=== PATIENT | male | born 1990 | race Caucasian/White ===

== ENCOUNTER 2017-10-21 17:02 | Emergency (ER) | payer OTHER ==
[2017-10-21 17:16] VITALS: RESP 18
--- NOTE | 2017-10-21 18:27 | ED ---
General Adult HPI - General Chief complaint: Allergic Reaction Stated complaint: poss med reaction Time Seen by Provider: 10/21/17 18:13 Source: patient Mode of arrival: ambulatory Limitations: no limitations - History of Present Illness Initial comments: 27-year-old male patient presents to emergency department today for evaluation of feeling "off". 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 States he started feeling woozy and unwell. Patient states that he did start taking amoxicillin this morning for dental infection. He is unsure if his symptoms are related to the medication. He denies any headache, dizziness, shortness of breath, throat swelling, tongue swelling, rash, or lip swelling. States he has never taken amoxicillin before. He denies any nausea or vomiting with this. Patient denies any recent rash, fever, chills, chest pain , abdominal pain, diarrhea, constipation, back pain, numbness, tingling, hematuria, dysuria, urinary urgency, urinary frequency, headache, visual changes, or any other complaints. - Related Data Home Medications Medication Instructions Recorded Confirmed Amoxicillin 500 mg PO Q8H 10/21/17 10/21/17 Allergies Allergy/AdvReac Type Severity Reaction Status Date / Time amoxicillin AdvReac Confusion Verified 10/21/17 17:16 Review of Systems ROS Statement: Those systems with pertinent positive or pertinent negative responses have been documented in the HPI. ROS Other: All systems not noted in ROS Statement are negative. Past Medical History Additional Past Medical History / Comment(s): Hypoglycemia History of Any Multi-Drug Resistant Organisms: None Reported Past Surgical History: No Surgical Hx Reported Past Psychological History: Depression Smoking Status: Current some day smoker Past Alcohol Use History: None Reported Past Drug Use History: None Reported General Exam Limitations: no limitations General appearance: alert, in no apparent distress, other (Social well-developed , well-nourished adult male patient in no acute distress. Vital signs upon presentation are temperature 90.3F, pulse 85, respirations 18, blood pressure 151/89, pulse ox 98% on room air.) Eye exam: Present: normal appearance, PERRL, EOMI. Absent: scleral icterus, conjunctival injection, periorbital swelling ENT exam: Present: normal exam, normal oropharynx, mucous membranes moist, other (Patient has multiple dental caries, left upper dentition reveals surrounding gingival erythema and some minor gingival swelling. No evidence of drainable abscess.) Respiratory exam: Present: normal lung sounds bilaterally. Absent: respiratory distress, wheezes, rales, rhonchi, stridor Cardiovascular Exam: Present: regular rate, normal rhythm, normal heart sounds. Absent: systolic murmur, diastolic murmur, rubs, gallop, clicks GI/Abdominal exam: Present: soft, normal bowel sounds. Absent: distended, tenderness, guarding, rebound, rigid Neurological exam: Present: alert, oriented X3, CN II-XII intact Psychiatric exam: Present: normal affect, normal mood Skin exam: Present: warm, dry, intact, normal color. Absent: rash Course Vital Signs 10/21/17 17:12 Temperature 98.3 F Pulse Rate 85 Respiratory 18 Rate Blood Pressure 151/89 O2 Sat by Pulse 98 Oximetry Medical Decision Making - Medical Decision Making 27-year-old male patient presented to the emergency department today for evaluation of feeling woozy and unwell. Physical examination is unremarkable. Examination of the mouth does reveal multiple dental caries and poor dentition. Patient's vital signs are stable. He is feeling somewhat better now that he is in the cool air and has rested afterward. He is urged to continue taking the amoxicillin as a do not feel that this is controlled with into his symptoms. He is instructed to follow-up with dentistry as soon as possible. Return parameters discussed in detail. He verbalizes understanding and agrees with this plan. Disposition Clinical Impression: Dental infection Disposition: HOME SELF-CARE Condition: Good Instructions: Toothache (ED) Additional Instructions: Rest, increase fluids, follow-up with dentistry as you have planned. Continue antibiotics. Return here immediately for any new, worsening, or concerning symptoms. Is patient prescribed a controlled substance at d/c from ED?: No Referrals: None,Stated [Primary Care Provider] - 1-2 days Time of Disposition: 18:27
[2017-10-21 18:53] VITALS: BP 133/79; PULSE 65; TEMP 98.8
== END 2017-10-21 18:53 | disposition home or self-care (01) ==
LOC: EC 17:02
DX: K04.7 Periapical abscess without sinus (principal); F17.200 Nicotine dependence, unspecified, uncomplicated; Z88.0 Allergy status to penicillin
CPT/HCPCS: 99283

== ENCOUNTER 2019-01-20 11:10 | Inpatient (IN) | payer OTHER ==
[2019-01-20] MEDS ORDERED: SODIUM CHLORIDE 0.9% 1,000 ML IV ONE ×2 (12:04→12:05)
[2019-01-20] MEDS ORDERED: ONDANSETRON 4 MG/2 ML VIAL IVP STA (12:05)
[2019-01-20 12:06] LABS: Glucose,Whole Blood 346 mg/dL (75-99)
[2019-01-20] MEDS ORDERED: Potassium Replacement Protocol 1 EACH MISC MISCELLANE PRN ×2 (12:06→20:49)
[2019-01-20] MEDS ORDERED: Magnesium Replacement Protocol 1 EACH MISC MISCELLANE PRN (12:06)
[2019-01-20] MEDS ORDERED: INSULIN REGULAR 100 UNIT in SODIUM CHLORIDE 0.9% 100 ML IV SCH (12:15)
--- NOTE | 2019-01-20 12:24 | ED ---
General Adult HPI - General Chief complaint: Urogenital Stated complaint: Abd Pain Time Seen by Provider: 01/20/19 11:15 Source: patient, RN notes reviewed Mode of arrival: ambulatory Limitations: no limitations - History of Present Illness Initial comments: This is a 28-year-old male who presents emergency Department complaining that for a month he has not been feeling well. Patient states she's been urinating quite often and drinking quite a bit of fluid. Patient states his mouth was also very dry. Patient states this morning he got up in the started vomiting and continued not to feel well so decided come the emergency department. Patient denies any fever chills per patient denies any chest pain or palpitations. Patient denies any lightheadedness or dizziness. Patient denies any abdominal pain patient denies any diarrhea. Patient denies any recent injury or fall. - Related Data Home Medications Medication Instructions Recorded Confirmed No Known Home Medications 01/20/19 01/20/19 Allergies Allergy/AdvReac Type Severity Reaction Status Date / Time No Known Allergies Allergy Verified 01/20/19 12:04 Review of Systems ROS Statement: Those systems with pertinent positive or pertinent negative responses have been documented in the HPI. ROS Other: All systems not noted in ROS Statement are negative. Past Medical History Additional Past Medical History / Comment(s): Hypoglycemia History of Any Multi-Drug Resistant Organisms: None Reported Past Surgical History: No Surgical Hx Reported Past Psychological History: No Psychological Hx Reported Smoking Status: Former smoker Past Alcohol Use History: None Reported Past Drug Use History: None Reported General Exam - General Exam Comments Initial Comments: GENERAL: Patient is well-developed and well-nourished. Patient is nontoxic and well- hydrated and is in mild distress. ENT: Neck is soft and supple. No significant lymphadenopathy is noted. Oropharynx is clear. Moist mucous membranes. Neck has full range of motion without eliciting any pain. EYES: The sclera were anicteric and conjunctiva were pink and moist. Extraocular movements were intact and pupils were equal round and reactive to light. Eyelids were unremarkable. PULMONARY: Unlabored respirations. Good breath sounds bilaterally. No audible rales rhonchi or wheezing was noted. CARDIOVASCULAR: There is a regular rate and rhythm without any murmurs gallops or rubs. ABDOMEN: Soft and nontender with normal bowel sounds. No palpable organomegaly was noted. There is no palpable pulsatile mass. SKIN: Skin is clear with no lesions or rashes and otherwise unremarkable. NEUROLOGIC: Patient is alert and oriented x3. Cranial nerves II through XII are grossly intact. Motor and sensory are also intact. Normal speech, volume and content. Symmetrical smile. MUSCULOSKELETAL: Normal extremities with adequate strength and full range of motion. No lower extremity swelling or edema. No calf tenderness. LYMPHATICS: No significant lymphadenopathy is noted PSYCHIATRIC: Normal psychiatric evaluation. Limitations: no limitations Course Vital Signs 01/20/19 11:15 Temperature 97.9 F Pulse Rate 106 H Respiratory 18 Rate Blood Pressure 157/74 O2 Sat by Pulse 100 Oximetry Medical Decision Making - Medical Decision Making EKG shows normal sinus rhythm at [address] interval is on a 56 QRS is 88 QT interval 372 QTC is 447. EKG shows no ST segment elevation or depression or T wave abnormalities are noted. Patient appears to be a new onset diabetic. I started the patient on insulin drip after a bolus and I gave the patient 2 L of fluid. I spoke with Dr. tucker he agreed to admit the patient admitted the patient wrote admitting orders. - Lab Data Result diagrams: 01/20/19 12:11 Lab Results 01/20/19 01/20/19 01/20/19 Range/Units 12:04 12:11 12:11 WBC 11.1 H (3.8-10.6) k/uL RBC 5.28 (4.30-5.90) m/uL Hgb 16.2 (13.0-17.5) gm/dL Hct 46.4 (39.0-53.0) % MCV 87.9 (80.0-100.0) fL MCH 30.7 (25.0-35.0) pg MCHC 35.0 (31.0-37.0) g/dL RDW 13.1 (11.5-15.5) % Plt Count 260 (150-450) k/uL Neutrophils % 86 % Lymphocytes % 8 % Monocytes % 4 % Eosinophils % 1 % Basophils % 0 % Neutrophils # 9.5 H (1.3-7.7) k/uL Lymphocytes # 0.9 L (1.0-4.8) k/uL Monocytes # 0.4 (0-1.0) k/uL Eosinophils # 0.1 (0-0.7) k/uL Basophils # 0.0 (0-0.2) k/uL POC Glucose (mg/dL) 346 H (75-99) mg/dL POC Glu Metal Mold Dresser ID Liz Alfaro Urine Color Urine Appearance (Clear) Urine pH (5.0-8.0) Ur Specific Lamar (1.001-1.035) Urine Protein (Negative) Urine Glucose (UA) (Negative) Urine Ketones (Negative) Urine Blood (Negative) Urine Nitrite (Negative) Urine Bilirubin (Negative) Urine Urobilinogen (<2.0) mg/dL Ur Leukocyte Esterase (Negative) Urine RBC (0-5) /hpf Urine WBC (0-5) /hpf Ur Squamous Epith Cells (0-4) /hpf Urine Bacteria (None) /hpf Urine Mucus (None) /hpf Acetone, Qual Positive (Negative) 01/20/19 Range/Units 12:11 WBC (3.8-10.6) k/uL RBC (4.30-5.90) m/uL Hgb (13.0-17.5) gm/dL Hct (39.0-53.0) % MCV (80.0-100.0) fL MCH (25.0-35.0) pg MCHC (31.0-37.0) g/dL RDW (11.5-15.5) % Plt Count (150-450) k/uL Neutrophils % % Lymphocytes % % Monocytes % % Eosinophils % % Basophils % % Neutrophils # (1.3-7.7) k/uL Lymphocytes # (1.0-4.8) k/uL Monocytes # (0-1.0) k/uL Eosinophils # (0-0.7) k/uL Basophils # (0-0.2) k/uL POC Glucose (mg/dL) (75-99) mg/dL POC Glu Metal [employer] Dresser ID Urine Color Light Yellow Urine Appearance Clear (Clear) Urine pH 5.5 (5.0-8.0) Ur Specific Lamar 1.027 (1.001-1.035) Urine Protein 1+ H (Negative) Urine Glucose (UA) 4+ H (Negative) Urine Ketones 4+ H (Negative) Urine Blood Small H (Negative) Urine Nitrite Negative (Negative) Urine Bilirubin Negative (Negative) Urine Urobilinogen <2.0 (<2.0) mg/dL Ur Leukocyte Esterase Negative (Negative) Urine RBC 1 (0-5) /hpf Urine WBC 1 (0-5) /hpf Ur Squamous Epith Cells <1 (0-4) /hpf Urine Bacteria Rare H (None) /hpf Urine Mucus Rare H (None) /hpf Acetone, Qual (Negative) Critical Care Time Critical Care Time: Yes Total Critical Care Time: 35 Disposition Clinical Impression: Diabetes mellitus, new onset, DKA (diabetic ketoacidoses) Disposition: ADMITTED IP TO THIS HOSP Referrals: None,Stated [Primary Care Provider] - 1-2 days Time of Disposition: 13:03
[2019-01-20] MEDS: SODIUM CHLORIDE 0.9% 1,000 ML IV SCH ×2 (12:27→14:33)
[2019-01-20 12:30] LABS: Basophils % (A) 0 %; Eosinophils # (A) 0.1 k/uL (0-0.7); Eosinophils % (A) 1 %; HCT 46.4 % (39.0-53.0); HGB 16.2 gm/dL (13.0-17.5); Lymphocytes # (A) 0.9 k/uL (1.0-4.8); Lymphocytes % (A) 8 %; MCH 30.7 pg (25.0-35.0); MCV 87.9 fL (80.0-100.0); Mean Platelet Volume 8.6; Monocytes # (A) 0.4 k/uL (0-1.0); Monocytes % (A) 4 %; Neutrophils # (A) 9.5 k/uL (1.3-7.7); Neutrophils % (A) 86 %; Platelet Count 260 k/uL (150-450); RBC 5.28 m/uL (4.30-5.90); RDW 13.1 % (11.5-15.5); WBC 11.1 k/uL (3.8-10.6)
[2019-01-20 12:36] LABS: Appearance,Urine Clear (Clear); Bacteria,Urine Rare /hpf; Bilirubin,Urine Negative (Negative); Blood,Urine Small (Negative); Color,Urine Light Yellow; Glucose,Urine (UA) 4+ (Negative); Leukocyte Esterase,Urine Negative (Negative); Mucus,Urine Rare /hpf; Nitrite,Urine Negative (Negative); PH, Urine 5.5 (5.0-8.0); Protein,Urine 1+ (Negative); RBC,Urine 1 /hpf (0-5); Specific Gravity,Urine 1.027 (1.001-1.035); Squamous Epithelial Cell,Urine <1 /hpf (0-4); Urobilinogen,Urine <2.0 mg/dL (<2.0)
[2019-01-20 12:46] LABS: Ketones,Urine 4+ (Negative)
[2019-01-20] MEDS: INSULIN REGULAR BOLUS (FROM DRIP BAG) IV ONE ×2 (12:51→23:24)
[2019-01-20 13:01] LABS: ALT 24 U/L (21-72); AST 19 U/L (17-59); African American GFR (CKD) >90 (>60 ml/min/1.73 sqM); Albumin 5.2 g/dL (3.5-5.0); Alkaline Phosphatase 69 U/L (38-126); Anion Gap 25 mmol/L; Blood Urea Nitrogen 11 mg/dL (9-20); Calcium 9.9 mg/dL (8.4-10.2); Chloride 103 mmol/L (98-107); Glucose 355 mg/dL (74-99); Potassium 4.5 mmol/L (3.5-5.1); Sodium 135 mmol/L (137-145); Total Bilirubin 0.9 mg/dL (0.2-1.3)
[2019-01-20] MEDS ORDERED: ONDANSETRON 4 MG/2 ML VIAL IVP PRN (13:04)
[2019-01-20 13:13] LABS: Carbon Dioxide 7 mmol/L (22-30)
[2019-01-20] MEDS: INSULIN REGULAR 100 UNIT in SODIUM CHLORIDE 0.9% 100 ML IV SCH (13:15)
[2019-01-20] MEDS ORDERED: SODIUM CHLORIDE 0.9% 1,000 ML IV SCH (13:15)
[2019-01-20 13:42] LABS: Glucose,Whole Blood 229 mg/dL (75-99)
[2019-01-20 14:34] LABS: VBG PH 7.02 (7.31-7.41)
[2019-01-20 14:36] LABS: Glucose,Whole Blood 219 mg/dL (75-99)
[2019-01-20 15:41] LABS: Glucose,Whole Blood 176 mg/dL (75-99)
[2019-01-20] MEDS: D5-0.45% NACL WITH KCL 20MEQ/L 1,000 ML IV SCH ×3 (15:41→23:22)
[2019-01-20 16:18] LABS: African American GFR (CKD) >90 (>60 ml/min/1.73 sqM); Anion Gap 17 mmol/L; Blood Urea Nitrogen 10 mg/dL (9-20); Chloride 111 mmol/L (98-107); Glucose 174 mg/dL (74-99); Potassium 3.5 mmol/L (3.5-5.1); Sodium 136 mmol/L (137-145)
[2019-01-20 16:30] LABS: Carbon Dioxide 8 mmol/L (22-30)
[2019-01-20 16:50] LABS: Glucose,Whole Blood 200 mg/dL (75-99)
[2019-01-20 18:16] LABS: Glucose,Whole Blood 189 mg/dL (75-99)
[2019-01-20 18:47] LABS: Glucose,Whole Blood 298 mg/dL (75-99)
[2019-01-20 20:21] LABS: Glucose,Whole Blood 224 mg/dL (75-99)
[2019-01-20 20:34] LABS: African American GFR (CKD) >90 (>60 ml/min/1.73 sqM); Anion Gap 13 mmol/L; Blood Urea Nitrogen 10 mg/dL (9-20); Carbon Dioxide 13 mmol/L (22-30); Chloride 109 mmol/L (98-107); Glucose 212 mg/dL (74-99); Sodium 135 mmol/L (137-145)
[2019-01-20 21:01] LABS: Glucose,Whole Blood 202 mg/dL (75-99)
[2019-01-20 22:06] LABS: Glucose,Whole Blood 238 mg/dL (75-99)
[2019-01-20] MEDS: POTASSIUM CHLORIDE ER 20 MEQ TAB.ER PO SCH ×2 (22:12→23:27)
[2019-01-20] MEDS ORDERED: Phosphorus Replacement Protoco 1 EACH MISC MISCELLANE PRN ×2 (22:23→22:40)
[2019-01-20] MEDS ORDERED: POTASSIUM PHOSPHATE 10 MMOL in SODIUM CHLORIDE 0.9% 250 ML IV SCH (23:00)
[2019-01-20 23:24] LABS: Glucose,Whole Blood 133 mg/dL (75-99)
[2019-01-20] MEDS: SODIUM PHOSPHATE 10 MMOL in SODIUM CHLORIDE 0.9% 250 ML IVPB SCH (23:28)
[2019-01-21] MEDS: INSULIN REGULAR 100 UNIT in SODIUM CHLORIDE 0.9% 100 ML IV SCH ×2 (00:22→09:32)
[2019-01-21 00:38] LABS: ALT 23 U/L (21-72); AST 14 U/L (17-59); African American GFR (CKD) >90 (>60 ml/min/1.73 sqM); Albumin 3.3 g/dL (3.5-5.0); Alkaline Phosphatase 38 U/L (38-126); Anion Gap 8 mmol/L; Blood Urea Nitrogen 9 mg/dL (9-20); Calcium 8.5 mg/dL (8.4-10.2); Carbon Dioxide 16 mmol/L (22-30); Chloride 110 mmol/L (98-107); Glucose 99 mg/dL (74-99); Magnesium 2.1 mg/dL (1.6-2.3); Sodium 134 mmol/L (137-145); Total Bilirubin 0.7 mg/dL (0.2-1.3); Total Protein 5.7 g/dL (6.3-8.2)
[2019-01-21] MEDS: POTASSIUM CHLORIDE ER 20 MEQ TAB.ER PO SCH ×4 (01:10→06:31)
--- NOTE | 2019-01-21 01:23 | P.HPIM ---
History of Present Illness H&P Date: 01/20/19 Chief Complaint: Generalized weakness and not feeling well Patient is a 28-year-old male with significant family history of diabetes type 1 and 2, currently not on any medications came to ER with complaints of not feeling well for about a month. Patient has been having frequent urination and drinking plenty of water and still feeling thirsty. Denied any dysuria or hematuria. Patient states this morning he got up in the started vomiting and continued not to feel well so decided come the emergency department. Patient denied any complaints of abdominal pain. No diarrhea. No fever no chills. No chest pain or shortness of breath. Denied any recent illnesses or upper respiratory infection or pneumonia. No cough or sputum production. Anion gap 25 and bicarb level 7 on admission. Blood sugar 355 and urinalysis showed no evidence of infection. Acetone positive. Review of Systems Constitutional: Patient denied any fever or chills. . Patient does have generalized weakness and malaise. Abdomen: Nausea and episodes of vomiting. No abdominal pain no diarrhea. Cardiovascular: Patient denies any chest pain or short of breath no palpitations. Respiratory: patient denied any cough is from production. No shortness of breath Neurologic: Patient denied any numbness or tingling headache. Musculoskeletal: Patient denies any complaints of joint swelling or deformity. Skin: Negative Psychiatric: Negative Endocrine: No heat or cold intolerance. Polyuria and polydipsia. Genitourinary: No dysuria or hematuria. All other 14 point ROS negative except the above Past Medical History Past Medical History: No Reported History Additional Past Medical History / Comment(s): Hypoglycemia History of Any Multi-Drug Resistant Organisms: None Reported Past Surgical History: No Surgical Hx Reported Past Psychological History: No Psychological Hx Reported Smoking Status: Former smoker Past Alcohol Use History: None Reported Past Drug Use History: None Reported - Past Family History Father Family Medical History: Cancer, Coronary Artery Disease (CAD), Myocardial Infarction ([place]) Mother Family Medical History: Diabetes Mellitus Medications and Allergies Home Medications Medication Instructions Recorded Confirmed Type No Known Home Medications 01/20/19 01/20/19 History Allergies Allergy/AdvReac Type Severity Reaction Status Date / Time No Known Allergies Allergy Verified 01/20/19 12:04 Physical Exam Vitals: Vital Signs Temp Pulse Resp BP Pulse Ox 01/20/19 18:20 90 10 L 120/76 100 01/20/19 18:10 68 19 120/76 99 01/20/19 18:00 67 18 114/74 01/20/19 17:50 71 16 114/74 01/20/19 17:40 79 9 L 114/74 01/20/19 17:30 18 114/74 01/20/19 17:20 73 19 114/74 99 01/20/19 17:10 80 29 H 114/74 01/20/19 17:00 66 20 117/71 01/20/19 16:50 85 15 117/71 01/20/19 16:40 87 12 117/71 01/20/19 16:30 75 18 117/71 99 01/20/19 16:20 72 16 117/71 01/20/19 16:10 77 10 L 117/71 01/20/19 16:00 86 18 125/73 01/20/19 15:50 86 23 125/73 01/20/19 15:40 74 20 125/73 01/20/19 15:31 92 21 125/73 01/20/19 15:20 72 17 125/73 01/20/19 15:10 79 22 125/73 01/20/19 15:01 83 16 124/75 01/20/19 14:50 80 17 124/75 01/20/19 14:41 88 16 01/20/19 11:15 97.9 F 106 H 18 157/74 100 Intake and Output 01/20/19 01/20/19 01/20/19 06:59 14:59 22:59 Other: Weight 91.626 kg PHYSICAL EXAMINATION: Patient is lying in the bed comfortably, no acute distress, awake alert and oriented. Lethargic and sleepy. HEENT: Normocephalic. Neck is supple. Pupils reactive. Nostrils clear. Oral cavity is moist. Ears reveal no drainage. Neck reveals no JVD, carotid bruits, or thyromegaly. CHEST EXAMINATION: Trachea is central. Symmetrical expansion. Lung wu clear to auscultation and percussion. CARDIAC: Normal S1, S2 with no gallops. No murmurs ABDOMEN: Soft. Bowel sounds normal. No organomegaly. No abdominal bruits. Extremities: reveal no edema. No clubbing or cyanosis Neurologically awake, alert, oriented x3 with well-coordinated movements. No focal deficits noted Skin: No rash or skin lesions. Psychiatric: Coperative. Nonsuicidal Musculoskeletal: No joint swelling or deformity. Normal range of motion. Results CBC & Chem 7: 01/20/19 12:11 01/21/19 00:12 Labs: Abnormal Lab Results - Last 24 Hours (Table) 01/20/19 01/20/19 01/20/19 Range/Units 12:04 12:11 12:11 WBC 11.1 H (3.8-10.6) k/uL Neutrophils # 9.5 H (1.3-7.7) k/uL Lymphocytes # 0.9 L (1.0-4.8) k/uL VBG pH (7.31-7.41) VBG pCO2 (37-51) mmHg VBG HCO3 (24-28) mmol/L Sodium 135 L (137-145) mmol/L Potassium (3.5-5.1) mmol/L Chloride (98-107) mmol/L Carbon Dioxide 7 L* (22-30) mmol/L Glucose 355 H (74-99) mg/dL POC Glucose (mg/dL) 346 H (75-99) mg/dL Phosphorus (2.5-4.5) mg/dL Albumin 5.2 H (3.5-5.0) g/dL Urine Protein (Negative) Urine Glucose (UA) (Negative) Urine Ketones (Negative) Urine Blood (Negative) Urine Bacteria (None) /hpf Urine Mucus (None) /hpf 01/20/19 01/20/19 01/20/19 Range/Units 12:11 13:40 13:41 WBC (3.8-10.6) k/uL Neutrophils # (1.3-7.7) k/uL Lymphocytes # (1.0-4.8) k/uL VBG pH 7.02 L* (7.31-7.41) VBG pCO2 35 L (37-51) mmHg VBG HCO3 9 L* (24-28) mmol/L Sodium (137-145) mmol/L Potassium (3.5-5.1) mmol/L Chloride (98-107) mmol/L Carbon Dioxide (22-30) mmol/L Glucose (74-99) mg/dL POC Glucose (mg/dL) 229 H (75-99) mg/dL Phosphorus (2.5-4.5) mg/dL Albumin (3.5-5.0) g/dL Urine Protein 1+ H (Negative) Urine Glucose (UA) 4+ H (Negative) Urine Ketones 4+ H (Negative) Urine Blood Small H (Negative) Urine Bacteria Rare H (None) /hpf Urine Mucus Rare H (None) /hpf 01/20/19 01/20/19 01/20/19 Range/Units 14:34 15:40 15:48 WBC (3.8-10.6) k/uL Neutrophils # (1.3-7.7) k/uL Lymphocytes # (1.0-4.8) k/uL VBG pH (7.31-7.41) VBG pCO2 (37-51) mmHg VBG HCO3 (24-28) mmol/L Sodium (137-145) mmol/L Potassium (3.5-5.1) mmol/L Chloride (98-107) mmol/L Carbon Dioxide (22-30) mmol/L Glucose (74-99) mg/dL POC Glucose (mg/dL) 219 H 176 H (75-99) mg/dL Phosphorus 1.0 L* (2.5-4.5) mg/dL Albumin (3.5-5.0) g/dL Urine Protein (Negative) Urine Glucose (UA) (Negative) Urine Ketones (Negative) Urine Blood (Negative) Urine Bacteria (None) /hpf Urine Mucus (None) /hpf 01/20/19 01/20/19 01/20/19 Range/Units 15:48 16:49 18:14 WBC (3.8-10.6) k/uL Neutrophils # (1.3-7.7) k/uL Lymphocytes # (1.0-4.8) k/uL VBG pH (7.31-7.41) VBG pCO2 (37-51) mmHg VBG HCO3 (24-28) mmol/L Sodium 136 L (137-145) mmol/L Potassium (3.5-5.1) mmol/L Chloride 111 H (98-107) mmol/L Carbon Dioxide 8 L* (22-30) mmol/L Glucose 174 H (74-99) mg/dL POC Glucose (mg/dL) 200 H 189 H (75-99) mg/dL Phosphorus (2.5-4.5) mg/dL Albumin (3.5-5.0) g/dL Urine Protein (Negative) Urine Glucose (UA) (Negative) Urine Ketones (Negative) Urine Blood (Negative) Urine Bacteria (None) /hpf Urine Mucus (None) /hpf 01/20/19 01/20/19 01/20/19 Range/Units 18:45 20:08 20:11 WBC (3.8-10.6) k/uL Neutrophils # (1.3-7.7) k/uL Lymphocytes # (1.0-4.8) k/uL VBG pH (7.31-7.41) VBG pCO2 (37-51) mmHg VBG HCO3 (24-28) mmol/L Sodium (137-145) mmol/L Potassium (3.5-5.1) mmol/L Chloride (98-107) mmol/L Carbon Dioxide (22-30) mmol/L Glucose (74-99) mg/dL POC Glucose (mg/dL) 298 H 224 H (75-99) mg/dL Phosphorus 0.9 L* (2.5-4.5) mg/dL Albumin (3.5-5.0) g/dL Urine Protein (Negative) Urine Glucose (UA) (Negative) Urine Ketones (Negative) Urine Blood (Negative) Urine Bacteria (None) /hpf Urine Mucus (None) /hpf 01/20/19 01/20/19 Range/Units 20:11 20:59 WBC (3.8-10.6) k/uL Neutrophils # (1.3-7.7) k/uL Lymphocytes # (1.0-4.8) k/uL VBG pH (7.31-7.41) VBG pCO2 (37-51) mmHg VBG HCO3 (24-28) mmol/L Sodium 135 L (137-145) mmol/L Potassium 3.0 L (3.5-5.1) mmol/L Chloride 109 H (98-107) mmol/L Carbon Dioxide 13 L (22-30) mmol/L Glucose 212 H (74-99) mg/dL POC Glucose (mg/dL) 202 H (75-99) mg/dL Phosphorus (2.5-4.5) mg/dL Albumin (3.5-5.0) g/dL Urine Protein (Negative) Urine Glucose (UA) (Negative) Urine Ketones (Negative) Urine Blood (Negative) Urine Bacteria (None) /hpf Urine Mucus (None) /hpf Thrombosis Risk Factor Assmnt - DVT/VTE Prophylaxis DVT/VTE Prophylaxis: Pharmacologic Prophylaxis ordered - Choose All That Apply Any of the Below Risk Factors Present?: No Other Risk Factors: No Other congenital or acquired thrombophilia - If yes, enter type in comment: No Thrombosis Risk Factor Assessment Level: Very Low Risk Assessment and Plan Assessment: acute diabetic ketoacidosis anion gap metabolic acidosis New onset diabetes Hypophosphatemia Hyperglycemia DVT prophylaxis Patient will be continued on IV hydration and insulin drip until anion gap closes. Continue to monitor lites.. Symptomatic management for nausea. Will obtain his B A1c level. Replace electrolytes. Patient will be transferred to MICU for critical care management and close monitoring. Further recommendations based on the clinical course. Time with Patient: Greater than 30
[2019-01-21 02:47] LABS: Glucose,Whole Blood 114 mg/dL (75-99)
[2019-01-21 03:42] LABS: Glucose,Whole Blood 105 mg/dL (75-99)
[2019-01-21 03:59] LABS: Basophils % (A) 0 %; Eosinophils # (A) 0.2 k/uL (0-0.7); Eosinophils % (A) 3 %; HCT 35.6 % (39.0-53.0); Lymphocytes # (A) 1.4 k/uL (1.0-4.8); Lymphocytes % (A) 20 %; MCH 29.1 pg (25.0-35.0); MCV 85.6 fL (80.0-100.0); Mean Platelet Volume 8.9; Monocytes # (A) 0.5 k/uL (0-1.0); Monocytes % (A) 7 %; Neutrophils # (A) 4.6 k/uL (1.3-7.7); Neutrophils % (A) 68 %; Platelet Count 158 k/uL (150-450); RBC 4.16 m/uL (4.30-5.90); RDW 13.2 % (11.5-15.5); WBC 6.8 k/uL (3.8-10.6)
[2019-01-21] MEDS: SODIUM PHOSPHATE 10 MMOL in SODIUM CHLORIDE 0.9% 250 ML IVPB SCH ×5 (04:01→17:17)
[2019-01-21 04:02] LABS: HGB 12.1 gm/dL (13.0-17.5)
[2019-01-21 04:07] LABS: Glucose,Whole Blood 123 mg/dL (75-99)
[2019-01-21 04:12] LABS: African American GFR (CKD) >90 (>60 ml/min/1.73 sqM); Anion Gap 11 mmol/L; Blood Urea Nitrogen 8 mg/dL (9-20); Calcium 8.2 mg/dL (8.4-10.2); Carbon Dioxide 14 mmol/L (22-30); Chloride 110 mmol/L (98-107); Glucose 110 mg/dL (74-99); Potassium 3.2 mmol/L (3.5-5.1); Sodium 135 mmol/L (137-145)
[2019-01-21 05:06] LABS: Glucose,Whole Blood 120 mg/dL (75-99)
[2019-01-21 06:30] LABS: Glucose,Whole Blood 144 mg/dL (75-99)
[2019-01-21] MEDS: D5-0.45% NACL WITH KCL 20MEQ/L 1,000 ML IV SCH (06:33)
[2019-01-21 07:39] LABS: Glucose,Whole Blood 108 mg/dL (75-99)
[2019-01-21 08:05] LABS: Glucose,Whole Blood 118 mg/dL (75-99)
[2019-01-21 08:36] LABS: Potassium 3.6 mmol/L (3.5-5.1)
[2019-01-21] MEDS: HEPARIN SODIUM,PORCINE 5,000 UNIT/ML 1 ML VIAL SQ SCH ×3 (08:49→23:11)
[2019-01-21 09:24] LABS: Glucose,Whole Blood 133 mg/dL (75-99)
[2019-01-21] MEDS ORDERED: Potassium Replacement Protocol 1 EACH MISC MISCELLANE PRN (09:31)
[2019-01-21] MEDS ORDERED: POTASSIUM BICARBONATE/CIT AC 20 MEQ TABLET.EFF NG-TUBE ONE (10:00)
[2019-01-21 10:46] LABS: Glucose,Whole Blood 136 mg/dL (75-99)
[2019-01-21 11:04] LABS: African American GFR (CKD) >90 (>60 ml/min/1.73 sqM); Anion Gap 9 mmol/L; Blood Urea Nitrogen 8 mg/dL (9-20); Calcium 8.6 mg/dL (8.4-10.2); Carbon Dioxide 17 mmol/L (22-30); Chloride 110 mmol/L (98-107); Glucose 111 mg/dL (74-99); Phosphorus 1.6 mg/dL (2.5-4.5); Sodium 136 mmol/L (137-145)
[2019-01-21 11:28] LABS: African American GFR (CKD) >90 (>60 ml/min/1.73 sqM); Anion Gap 10 mmol/L; Blood Urea Nitrogen 6 mg/dL (9-20); Calcium 8.9 mg/dL (8.4-10.2); Carbon Dioxide 18 mmol/L (22-30); Chloride 107 mmol/L (98-107); Glucose 131 mg/dL (74-99); Magnesium 1.9 mg/dL (1.6-2.3); Potassium 4.4 mmol/L (3.5-5.1); Sodium 135 mmol/L (137-145)
[2019-01-21 11:54] LABS: Glucose,Whole Blood 190 mg/dL (75-99)
[2019-01-21] MEDS ORDERED: Phosphorus Replacement Protoco 1 EACH MISC MISCELLANE PRN (12:00)
[2019-01-21] MEDS: INSULIN ASPART (NovoLOG) 100 UNIT/ML VIAL SQ SCH ×5 (12:15→20:38)
[2019-01-21] MEDS: SODIUM CHLORIDE 0.9% 1,000 ML IV SCH (12:18)
[2019-01-21 13:59] LABS: Hemoglobin A1C 11.4 % (4.0-6.0)
[2019-01-21 15:54] LABS: African American GFR (CKD) >90 (>60 ml/min/1.73 sqM); Anion Gap 10 mmol/L; Blood Urea Nitrogen 6 mg/dL (9-20); Calcium 8.6 mg/dL (8.4-10.2); Carbon Dioxide 18 mmol/L (22-30); Chloride 106 mmol/L (98-107); Glucose 272 mg/dL (74-99); Potassium 3.5 mmol/L (3.5-5.1); Sodium 134 mmol/L (137-145)
[2019-01-21 16:59] LABS: Glucose,Whole Blood 264 mg/dL (75-99)
[2019-01-21] MEDS ORDERED: INSULIN DETEMIR (LEVEMIR) 100 UNIT/ML SYR SQ SCH (17:00)
[2019-01-21 20:36] LABS: Glucose,Whole Blood 256 mg/dL (75-99)
--- NOTE | 2019-01-22 01:20 | P.PN ---
Subjective Progress Note Date: 01/21/19 Principal diagnosis: Acute diabetic ketoacidosis new onset diabetes Patient is a 28-year-old male with significant family history of diabetes type 1 and 2, currently not on any medications came to ER with complaints of not feeling well for about a month. Patient has been having frequent urination and drinking plenty of water and still feeling thirsty. Denied any dysuria or hematuria. Patient states this morning he got up in the started vomiting and continued not to feel well so decided come the emergency department. Patient denied any complaints of abdominal pain. No diarrhea. No fever no chills. No chest pain or shortness of breath. Denied any recent illnesses or upper respiratory infection or pneumonia. No cough or sputum production. Anion gap 25 and bicarb level 7 on admission. Blood sugar 355 and urinalysis showed no evidence of infection. Acetone positive. 01/21/2019 Patient says that he feels much better today. AG is almost closed. No complaints of abdominal pain. Blood sugar is still elevated and was started on Levemir 15 units at bedtime along with 5 units of aspart 3 times a day before meals and sliding scale. Titrate insulin dose as needed. Diabetic education was provided. No chest pain or shortness of breath. No nausea vomiting or diarrhea. No other acute overnight issues. Current medications reviewed. Objective - Vital Signs Vital signs: Vital Signs Temp 97.8 F 01/21/19 16:00 Pulse 75 01/21/19 18:00 Resp 27 H 01/21/19 17:00 BP 140/89 01/21/19 17:00 Pulse Ox 98 01/21/19 17:00 Intake & Output 01/20/19 01/21/19 01/21/19 18:59 06:59 18:59 Intake Total 2801.00 1148.222 Output Total 670 2900 Balance 2131.00 -1751.778 Weight 91.626 kg 94.2 kg 94.2 kg Intake: IV 1125 0.9 NACL 525 D5-0.45% NaCl with KCl 600 20Meq/l 1,000 ml @ 150 mls/hr IV .Q6H40M [facility] Rx# :[id number] Intake, IV Titration 2801.00 23.222 Amount D5-0.45% NaCl with KCl 1950 20Meq/l 1,000 ml @ 150 mls/hr IV .Q6H40M [facility] Rx# :[id number] Insulin Regular 100 unit 101.00 23.222 In Sodium Chloride 0.9% 100 ml @ 0.1 UNITS/KG/HR 9.254 mls/hr IV .[id number] [facility] Rx#:[id number] Sodium Phosphate 10 mmol 750 In Sodium Chloride 0.9% 250 ml @ 125 mls/hr IVPB Q2H [facility] Rx#:[id number] Output: Urine 670 2900 Other: Voiding Method Urinal Urinal # Bowel Movements 1 - Exam PHYSICAL EXAMINATION: Patient is lying in the bed comfortably, no acute distress, awake alert and oriented.. HEENT: Normocephalic. Neck is supple. Pupils reactive. Nostrils clear. Oral cavity is moist. Ears reveal no drainage. Neck reveals no JVD, carotid bruits, or thyromegaly. CHEST EXAMINATION: Trachea is central. Symmetrical expansion. Lung wu clear to auscultation and percussion. CARDIAC: Normal S1, S2 with no gallops. No murmurs ABDOMEN: Soft. Bowel sounds normal. No organomegaly. No abdominal bruits. Extremities: reveal no edema. No clubbing or cyanosis Neurologically awake, alert, oriented x3 with well-coordinated movements. No focal deficits noted Skin: No rash or skin lesions. Psychiatric: Coperative. Nonsuicidal Musculoskeletal: No joint swelling or deformity. Normal range of motion. - Labs CBC & Chem 7: 01/21/19 03:49 01/21/19 15:37 Labs: Abnormal Lab Results - Last 24 Hours (Table) 01/20/19 01/20/19 01/20/19 Range/Units 20:08 20:11 20:11 RBC (4.30-5.90) m/uL Hgb (13.0-17.5) gm/dL Hct (39.0-53.0) % Sodium 135 L (137-145) mmol/L Potassium 3.0 L (3.5-5.1) mmol/L Chloride 109 H (98-107) mmol/L Carbon Dioxide 13 L (22-30) mmol/L BUN (9-20) mg/dL Creatinine (0.66-1.25) mg/dL Glucose 212 H (74-99) mg/dL POC Glucose (mg/dL) 224 H (75-99) mg/dL Hemoglobin A1c (4.0-6.0) % Calcium (8.4-10.2) mg/dL Phosphorus 0.9 L* (2.5-4.5) mg/dL AST (17-59) U/L Total Protein (6.3-8.2) g/dL Albumin (3.5-5.0) g/dL 01/20/19 01/20/19 01/20/19 Range/Units 20:59 22:03 23:20 RBC (4.30-5.90) m/uL Hgb (13.0-17.5) gm/dL Hct (39.0-53.0) % Sodium (137-145) mmol/L Potassium (3.5-5.1) mmol/L Chloride (98-107) mmol/L Carbon Dioxide (22-30) mmol/L BUN (9-20) mg/dL Creatinine (0.66-1.25) mg/dL Glucose (74-99) mg/dL POC Glucose (mg/dL) 202 H 238 H 133 H (75-99) mg/dL Hemoglobin A1c (4.0-6.0) % Calcium (8.4-10.2) mg/dL Phosphorus (2.5-4.5) mg/dL AST (17-59) U/L Total Protein (6.3-8.2) g/dL Albumin (3.5-5.0) g/dL 01/21/19 01/21/19 01/21/19 Range/Units 00:12 02:18 03:06 RBC (4.30-5.90) m/uL Hgb (13.0-17.5) gm/dL Hct (39.0-53.0) % Sodium 134 L (137-145) mmol/L Potassium 3.0 L (3.5-5.1) mmol/L Chloride 110 H (98-107) mmol/L Carbon Dioxide 16 L (22-30) mmol/L BUN (9-20) mg/dL Creatinine 0.63 L (0.66-1.25) mg/dL Glucose (74-99) mg/dL POC Glucose (mg/dL) 114 H 105 H (75-99) mg/dL Hemoglobin A1c (4.0-6.0) % Calcium (8.4-10.2) mg/dL Phosphorus (2.5-4.5) mg/dL AST 14 L (17-59) U/L Total Protein 5.7 L (6.3-8.2) g/dL Albumin 3.3 L (3.5-5.0) g/dL 01/21/19 01/21/19 01/21/19 Range/Units 03:49 03:49 03:49 RBC 4.16 L (4.30-5.90) m/uL Hgb 12.1 L D (13.0-17.5) gm/dL Hct 35.6 L (39.0-53.0) % Sodium 135 L (137-145) mmol/L Potassium 3.2 L (3.5-5.1) mmol/L Chloride 110 H (98-107) mmol/L Carbon Dioxide 14 L (22-30) mmol/L BUN 8 L (9-20) mg/dL Creatinine 0.58 L (0.66-1.25) mg/dL Glucose 110 H (74-99) mg/dL POC Glucose (mg/dL) (75-99) mg/dL Hemoglobin A1c 11.4 H (4.0-6.0) % Calcium 8.2 L (8.4-10.2) mg/dL Phosphorus (2.5-4.5) mg/dL AST (17-59) U/L Total Protein (6.3-8.2) g/dL Albumin (3.5-5.0) g/dL 01/21/19 01/21/19 01/21/19 Range/Units 03:49 04:05 05:04 RBC (4.30-5.90) m/uL Hgb (13.0-17.5) gm/dL Hct (39.0-53.0) % Sodium (137-145) mmol/L Potassium (3.5-5.1) mmol/L Chloride (98-107) mmol/L Carbon Dioxide (22-30) mmol/L BUN (9-20) mg/dL Creatinine (0.66-1.25) mg/dL Glucose (74-99) mg/dL POC Glucose (mg/dL) 123 H 120 H (75-99) mg/dL Hemoglobin A1c (4.0-6.0) % Calcium (8.4-10.2) mg/dL Phosphorus 2.4 L (2.5-4.5) mg/dL AST (17-59) U/L Total Protein (6.3-8.2) g/dL Albumin (3.5-5.0) g/dL 01/21/19 01/21/19 01/21/19 Range/Units 06:16 07:03 07:52 RBC (4.30-5.90) m/uL Hgb (13.0-17.5) gm/dL Hct (39.0-53.0) % Sodium (137-145) mmol/L Potassium (3.5-5.1) mmol/L Chloride (98-107) mmol/L Carbon Dioxide (22-30) mmol/L BUN (9-20) mg/dL Creatinine (0.66-1.25) mg/dL Glucose (74-99) mg/dL POC Glucose (mg/dL) 144 H 108 H 118 H (75-99) mg/dL Hemoglobin A1c (4.0-6.0) % Calcium (8.4-10.2) mg/dL Phosphorus (2.5-4.5) mg/dL AST (17-59) U/L Total Protein (6.3-8.2) g/dL Albumin (3.5-5.0) g/dL 01/21/19 01/21/19 01/21/19 Range/Units 08:01 09:22 10:33 RBC (4.30-5.90) m/uL Hgb (13.0-17.5) gm/dL Hct (39.0-53.0) % Sodium 136 L (137-145) mmol/L Potassium (3.5-5.1) mmol/L Chloride 110 H (98-107) mmol/L Carbon Dioxide 17 L (22-30) mmol/L BUN 8 L (9-20) mg/dL Creatinine 0.60 L (0.66-1.25) mg/dL Glucose 111 H (74-99) mg/dL POC Glucose (mg/dL) 133 H 136 H (75-99) mg/dL Hemoglobin A1c (4.0-6.0) % Calcium (8.4-10.2) mg/dL Phosphorus 1.6 L (2.5-4.5) mg/dL AST (17-59) U/L Total Protein (6.3-8.2) g/dL Albumin (3.5-5.0) g/dL 01/21/19 01/21/19 01/21/19 Range/Units 10:53 11:52 15:37 RBC (4.30-5.90) m/uL Hgb (13.0-17.5) gm/dL Hct (39.0-53.0) % Sodium 135 L 134 L (137-145) mmol/L Potassium (3.5-5.1) mmol/L Chloride (98-107) mmol/L Carbon Dioxide 18 L 18 L (22-30) mmol/L BUN 6 L 6 L (9-20) mg/dL Creatinine 0.65 L (0.66-1.25) mg/dL Glucose 131 H 272 H (74-99) mg/dL POC Glucose (mg/dL) 190 H (75-99) mg/dL Hemoglobin A1c (4.0-6.0) % Calcium (8.4-10.2) mg/dL Phosphorus 1.0 L* (2.5-4.5) mg/dL AST (17-59) U/L Total Protein (6.3-8.2) g/dL Albumin (3.5-5.0) g/dL 01/21/19 Range/Units 16:57 RBC (4.30-5.90) m/uL Hgb (13.0-17.5) gm/dL Hct (39.0-53.0) % Sodium (137-145) mmol/L Potassium (3.5-5.1) mmol/L Chloride (98-107) mmol/L Carbon Dioxide (22-30) mmol/L BUN (9-20) mg/dL Creatinine (0.66-1.25) mg/dL Glucose (74-99) mg/dL POC Glucose (mg/dL) 264 H (75-99) mg/dL Hemoglobin A1c (4.0-6.0) % Calcium (8.4-10.2) mg/dL Phosphorus (2.5-4.5) mg/dL AST (17-59) U/L Total Protein (6.3-8.2) g/dL Albumin (3.5-5.0) g/dL Assessment and Plan Assessment: acute diabetic ketoacidosis anion gap metabolic acidosis New onset diabetes Hypophosphatemia Hyperglycemia DVT prophylaxis Patient will be continued on IV hydration and insulin drip discontinued as gap closes. Continue to monitor lites.. Symptomatic management for nausea. Will obtain his B A1c level. Replace electrolytes. Patient can be transferred to the ICU. Patient will be started on Levemir and aspart and dose will be titrated.. Further recommendations based on the clinical course. Time with Patient: Greater than 30
[2019-01-22] MEDS: INSULIN ASPART (NovoLOG) 100 UNIT/ML VIAL SQ SCH ×8 (01:38→21:44)
[2019-01-22] MEDS: SODIUM CHLORIDE 0.9% 1,000 ML IV SCH ×2 (01:39→16:46)
[2019-01-22 01:51] LABS: Glucose,Whole Blood 122 mg/dL (75-99)
[2019-01-22 04:47] LABS: HCT 37.2 % (39.0-53.0); HGB 13.3 gm/dL (13.0-17.5); MCH 30.1 pg (25.0-35.0); MCHC 35.8 g/dL (31.0-37.0); MCV 84.2 fL (80.0-100.0); Mean Platelet Volume 8.1; Platelet Count 145 k/uL (150-450); RBC 4.42 m/uL (4.30-5.90); RDW 13.1 % (11.5-15.5); WBC 6.2 k/uL (3.8-10.6)
[2019-01-22 04:58] LABS: African American GFR (CKD) >90 (>60 ml/min/1.73 sqM); Anion Gap 8 mmol/L; Blood Urea Nitrogen 5 mg/dL (9-20); Calcium 8.8 mg/dL (8.4-10.2); Carbon Dioxide 27 mmol/L (22-30); Chloride 104 mmol/L (98-107); Glucose 90 mg/dL (74-99); Phosphorus 2.7 mg/dL (2.5-4.5); Potassium 2.9 mmol/L (3.5-5.1); Sodium 139 mmol/L (137-145)
[2019-01-22] MEDS: POTASSIUM CHLORIDE ER 20 MEQ TAB.ER PO SCH ×3 (06:57→10:25)
[2019-01-22 06:58] LABS: Glucose,Whole Blood 132 mg/dL (75-99)
[2019-01-22 11:04] VITALS: BMI 27.6
[2019-01-22 12:09] LABS: Glucose,Whole Blood 305 mg/dL (75-99)
[2019-01-22 13:56] LABS: Glucose,Whole Blood 343 mg/dL (75-99)
[2019-01-22] MEDS ORDERED: INSULIN DETEMIR (LEVEMIR) 100 UNIT/ML SYR SQ SCH (14:30)
[2019-01-22 16:45] LABS: Glucose,Whole Blood 228 mg/dL (75-99)
[2019-01-22] MEDS: INSULIN DETEMIR (LEVEMIR) 100 UNIT/ML SYR SQ SCH (21:45)
[2019-01-22 21:50] LABS: Glucose,Whole Blood 180 mg/dL (75-99)
[2019-01-23] MEDS: INSULIN ASPART (NovoLOG) 100 UNIT/ML VIAL SQ SCH ×8 (02:06→22:15)
[2019-01-23 03:13] LABS: Glucose,Whole Blood 176 mg/dL (75-99)
--- NOTE | 2019-01-23 03:21 | P.PN ---
Subjective Progress Note Date: 01/22/19 Principal diagnosis: Acute diabetic ketoacidosis new onset diabetes Patient is a 28-year-old male with significant family history of diabetes type 1 and 2, currently not on any medications came to ER with complaints of not feeling well for about a month. Patient has been having frequent urination and drinking plenty of water and still feeling thirsty. Denied any dysuria or hematuria. Patient states this morning he got up in the started vomiting and continued not to feel well so decided come the emergency department. Patient denied any complaints of abdominal pain. No diarrhea. No fever no chills. No chest pain or shortness of breath. Denied any recent illnesses or upper respiratory infection or pneumonia. No cough or sputum production. Anion gap 25 and bicarb level 7 on admission. Blood sugar 355 and urinalysis showed no evidence of infection. Acetone positive. 01/21/2019 Patient says that he feels much better today. AG is almost closed. No complaints of abdominal pain. Blood sugar is still elevated and was started on Levemir 15 units at bedtime along with 5 units of aspart 3 times a day before meals and sliding scale. Titrate insulin dose as needed. Diabetic education was provided. No chest pain or shortness of breath. No nausea vomiting or diarrhea. No other acute overnight issues. 01/22/2019 Patient denied any complaints of dizziness or lightheadedness. Tolerating dietary diet. Diabetic education was provided. Otherwise patient is still elevated and 300s this afternoon. Insulin dose was adjusted. Continued with Levemir 24 units at bedtime along with 8 units of aspart 3 times a day before meals and sliding scale. No fever no chills. No other acute overnight issues. A1c 11.4 Possible discharge home tomorrow. Current medications reviewed. Objective - Vital Signs Vital signs: Vital Signs Temp 97.9 F 01/22/19 16:00 Pulse 82 01/22/19 16:00 Resp 17 01/22/19 16:00 BP 138/92 01/22/19 16:00 Pulse Ox 99 01/22/19 16:00 Intake & Output 01/21/19 01/22/19 01/22/19 18:59 06:59 18:59 Intake Total 1148.222 897 300 Output Total 2900 780 1700 Balance -1751.778 117 -1400 Weight 94.2 kg 94.8 kg 94.8 kg Intake: IV 1125 897 300 0.9 NACL 525 897 300 D5-0.45% NaCl with KCl 600 20Meq/l 1,000 ml @ 150 mls/hr IV .Q6H40M [facility] Rx# :[id number] Intake, IV Titration 23.222 Amount Insulin Regular 100 unit 23.222 In Sodium Chloride 0.9% 100 ml @ 0.1 UNITS/KG/HR 9.254 mls/hr IV .[id number] [facility] Rx#:[id number] Output: Urine 2900 780 1700 Other: Voiding Method Urinal Urinal Urinal # Bowel Movements 1 - Exam PHYSICAL EXAMINATION: Patient is lying in the bed comfortably, no acute distress, awake alert and oriented.. HEENT: Normocephalic. Neck is supple. Pupils reactive. Nostrils clear. Oral cavity is moist. Ears reveal no drainage. Neck reveals no JVD, carotid bruits, or thyromegaly. CHEST EXAMINATION: Trachea is central. Symmetrical expansion. Lung wu clear to auscultation and percussion. CARDIAC: Normal S1, S2 with no gallops. No murmurs ABDOMEN: Soft. Bowel sounds normal. No organomegaly. No abdominal bruits. Extremities: reveal no edema. No clubbing or cyanosis Neurologically awake, alert, oriented x3 with well-coordinated movements. No focal deficits noted Skin: No rash or skin lesions. Psychiatric: Coperative. Nonsuicidal Musculoskeletal: No joint swelling or deformity. Normal range of motion. - Labs CBC & Chem 7: 01/22/19 03:55 01/22/19 12:19 Labs: Abnormal Lab Results - Last 24 Hours (Table) 01/21/19 01/22/19 01/22/19 Range/Units 20:34 01:37 03:55 Hct (39.0-53.0) % Plt Count (150-450) k/uL Potassium 2.9 L (3.5-5.1) mmol/L BUN 5 L (9-20) mg/dL Creatinine 0.54 L (0.66-1.25) mg/dL POC Glucose (mg/dL) 256 H 122 H (75-99) mg/dL 01/22/19 01/22/19 01/22/19 Range/Units 03:55 06:55 11:56 Hct 37.2 L (39.0-53.0) % Plt Count 145 L (150-450) k/uL Potassium (3.5-5.1) mmol/L BUN (9-20) mg/dL Creatinine (0.66-1.25) mg/dL POC Glucose (mg/dL) 132 H 305 H (75-99) mg/dL 01/22/19 01/22/19 Range/Units 13:53 16:43 Hct (39.0-53.0) % Plt Count (150-450) k/uL Potassium (3.5-5.1) mmol/L BUN (9-20) mg/dL Creatinine (0.66-1.25) mg/dL POC Glucose (mg/dL) 343 H 228 H (75-99) mg/dL Assessment and Plan Assessment: acute diabetic ketoacidosis. Resolved anion gap metabolic acidosis New onset diabetes Hypophosphatemia Hypokalemia 2.9 Hyperglycemia DVT prophylaxis Insulin drip has been discontinued. And gap has closed. Patient was started on subcu insulin. Tolerating oral diet. Insulin dose was adjusted. Will obtain his B A1c level. Replace electrolytes. \ Patient will be continued on Levemir and aspart and dose will be titrated.. Further recommendations based on the clinical course. Time with Patient: Greater than 30
[2019-01-23 04:34] LABS: Basophils % (A) 1 %; Eosinophils # (A) 0.3 k/uL (0-0.7); Eosinophils % (A) 5 %; HCT 36.4 % (39.0-53.0); HGB 13.1 gm/dL (13.0-17.5); Lymphocytes # (A) 1.7 k/uL (1.0-4.8); Lymphocytes % (A) 32 %; MCH 30.4 pg (25.0-35.0); MCHC 35.9 g/dL (31.0-37.0); MCV 84.7 fL (80.0-100.0); Mean Platelet Volume 8.3; Monocytes # (A) 0.4 k/uL (0-1.0); Monocytes % (A) 7 %; Neutrophils # (A) 2.7 k/uL (1.3-7.7); Neutrophils % (A) 52 %; Platelet Count 146 k/uL (150-450); RDW 13.2 % (11.5-15.5); WBC 5.1 k/uL (3.8-10.6)
[2019-01-23] MEDS: SODIUM CHLORIDE 0.9% 1,000 ML IV SCH ×2 (04:47→17:21)
[2019-01-23 04:50] LABS: African American GFR (CKD) >90 (>60 ml/min/1.73 sqM); Anion Gap 6 mmol/L; Blood Urea Nitrogen 5 mg/dL (9-20); Carbon Dioxide 27 mmol/L (22-30); Chloride 105 mmol/L (98-107); Glucose 160 mg/dL (74-99); Phosphorus 3.1 mg/dL (2.5-4.5); Sodium 138 mmol/L (137-145)
[2019-01-23 04:56] LABS: Potassium 2.4 mmol/L (3.5-5.1)
[2019-01-23] MEDS ORDERED: Potassium Replacement Protocol 1 EACH MISC MISCELLANE PRN ×2 (04:59→14:22)
[2019-01-23] MEDS: POTASSIUM CHLORIDE ER 20 MEQ TAB.ER PO SCH ×5 (05:24→15:43)
[2019-01-23 07:19] LABS: Glucose,Whole Blood 138 mg/dL (75-99)
[2019-01-23 10:49] LABS: Glucose,Whole Blood 139 mg/dL (75-99)
[2019-01-23 11:19] LABS: Glucose,Whole Blood 155 mg/dL (75-99)
[2019-01-23] MEDS: HEPARIN SODIUM,PORCINE 5,000 UNIT/ML 1 ML VIAL SQ SCH (11:26)
[2019-01-23] MEDS ORDERED: POTASSIUM CHLORIDE ER 20 MEQ TAB.ER PO STA (15:20)
[2019-01-23 17:10] LABS: Glucose,Whole Blood 257 mg/dL (75-99)
[2019-01-23 20:42] LABS: Glucose,Whole Blood 224 mg/dL (75-99)
[2019-01-23 22:02] VITALS: RESP 18
[2019-01-23] MEDS: INSULIN DETEMIR (LEVEMIR) 100 UNIT/ML SYR SQ SCH (22:15)
[2019-01-24 01:56] LABS: Glucose,Whole Blood 226 mg/dL (75-99)
[2019-01-24] MEDS: INSULIN ASPART (NovoLOG) 100 UNIT/ML VIAL SQ SCH ×5 (02:33→11:59)
[2019-01-24 05:02] VITALS: BP 111/75; PULSE 70; TEMP 97.7
[2019-01-24] MEDS: SODIUM CHLORIDE 0.9% 1,000 ML IV SCH (05:21)
[2019-01-24 07:14] LABS: Glucose,Whole Blood 220 mg/dL (75-99)
[2019-01-24 11:37] LABS: Glucose,Whole Blood 235 mg/dL (75-99)
== END 2019-01-24 12:19 | disposition home or self-care (01) | DRG 639 ==
LOC: EC 11:10 → 4SSUR 13:03 → 3SCARD 14:45 → 2SICU 18:05 → 3NMEDONC 01-23 11:12
PROVIDERS: ADMIT Internal Medicine; ATTEND Internal Medicine
DX: E11.10 Type 2 diabetes mellitus with ketoacidosis without coma (principal); E83.39 Other disorders of phosphorus metabolism; E87.6 Hypokalemia; Z87.891 Personal history of nicotine dependence; Z82.49 Family history of ischemic heart disease and other diseases of the circulatory system; Z83.3 Family history of diabetes mellitus
CPT/HCPCS: 36415; 80048; 80051; 80053; 81001; 82009; 82565; 82803; 82947; 83036; 83735; 84100; 84132; 84520; 85025; 85027; 93005; 96361; 96374; 99285

== ENCOUNTER 2020-02-19 20:05 | Emergency (ER) | payer BC ==
[2020-02-19 20:15] VITALS: RESP 18
[2020-02-19] MEDS ORDERED: ONDANSETRON 4 MG/2 ML VIAL IVP STA (20:36)
[2020-02-19] MEDS ORDERED: MECLIZINE 12.5 MG TAB PO STA (20:36)
[2020-02-19] MEDS ORDERED: SODIUM CHLORIDE 0.9% 1,000 ML IV STA ×2 (20:36)
[2020-02-19] MEDS ORDERED: SODIUM CHLORIDE 0.9% 500 ML 500 ML IV STA (20:36)
--- NOTE | 2020-02-19 20:39 | ED ---
Dizziness HPI - General Chief Complaint: Dizziness Stated Complaint: Dizziness Time Seen by Provider: 02/19/20 20:19 Source: patient, RN notes reviewed, old records reviewed Mode of arrival: ambulatory Limitations: no limitations - History of Present Illness Initial Comments: This is a 29-year-old male DF for evaluation patient states she has not feeling well dizziness and weakness, as all happened while today at work. He is does not feel like his normal self is a type I diabetic with sugars remain usually in pretty good shape. No recent hospital admissions or travel history or sick contacts or chest pain now pain or shortness of breath no recent nausea vomiting and diarrhea or fevers. Patient states he just feels off dizziness, complains of disconcerting dizziness lightheadedness sometimes room spinning sometimes feels like his maybe off found on his feet. No drugs or alcohol abuse MD Complaint: dizziness, lightheadedness, near syncope -: hour(s) Timing: gradual onset Description: "room spinning", lightheadedness, off-balance History of Same: No History of Trauma: No Severity: moderate Improves With: remaining still Worsens With: movement, position Associated Symptoms: denies other symptoms - Related Data Previous Rx's Medication Instructions Recorded INSULIN ASPART (NovoLOG) [NovoLOG 8 unit SQ AC-TID 30 Days #1 vial 01/23/19 (formulary)] Insulin Detemir (Levemir) [Levemir] 24 unit SQ HS 30 Days #1 vial 01/23/19 Allergies Allergy/AdvReac Type Severity Reaction Status Date / Time No Known Allergies Allergy Verified 02/19/20 20:15 Review of Systems ROS Statement: Those systems with pertinent positive or pertinent negative responses have been documented in the HPI. ROS Other: All systems not noted in ROS Statement are negative. Past Medical History Past Medical History: No Reported History Additional Past Medical History / Comment(s): Hypoglycemia History of Any Multi-Drug Resistant Organisms: None Reported Past Surgical History: No Surgical Hx Reported Past Psychological History: No Psychological Hx Reported Smoking Status: Current some day smoker Past Alcohol Use History: None Reported Past Drug Use History: None Reported - Past Family History Father Family Medical History: Cancer, Coronary Artery Disease (CAD), Myocardial Infarction ([place]) Mother Family Medical History: Diabetes Mellitus General Exam Limitations: no limitations General appearance: alert, in no apparent distress Head exam: Present: atraumatic, normocephalic, normal inspection Eye exam: Present: normal appearance, PERRL, EOMI. Absent: scleral icterus, conjunctival injection, periorbital swelling ENT exam: Present: normal exam, mucous membranes moist Neck exam: Present: normal inspection. Absent: tenderness, meningismus, lymphadenopathy Respiratory exam: Present: normal lung sounds bilaterally. Absent: respiratory distress, wheezes, rales, rhonchi, stridor Cardiovascular Exam: Present: regular rate, normal rhythm, normal heart sounds. Absent: systolic murmur, diastolic murmur, rubs, gallop, clicks GI/Abdominal exam: Present: soft, normal bowel sounds. Absent: distended, tenderness, guarding, rebound, rigid Extremities exam: Present: normal inspection, full ROM, normal capillary refill. Absent: tenderness, pedal edema, joint swelling, calf tenderness Back exam: Present: normal inspection Neurological exam: Present: alert, oriented X3, CN II-XII intact Psychiatric exam: Present: normal affect, normal mood Skin exam: Present: warm, dry, intact, normal color. Absent: rash Course Vital Signs 02/19/20 20:11 Temperature 97.6 F Pulse Rate 84 Respiratory 18 Rate Blood Pressure 135/89 O2 Sat by Pulse 99 Oximetry - Reevaluation(s) Reevaluation #1: 02/19/20 21:51 Medical record is reviewed Reevaluation #2: 02/19/20 22:27 Patient rechecked and reevaluated, symptoms maybe mildly improved, able to ambulate Reevaluation #3: 02/19/20 22:27 Spoke patient length findings and questions are answered EKG Findings - EKG Comments: EKG Findings:: EKG is sinus rhythm 62 ME 144 QRS 92 QTC 422 Medical Decision Making - Medical Decision Making 29 male DF with nonspecific dizziness and weakness not feeling well. Patient can be discharged home blood sugar within normal limits lab values within normal limits - Lab Data Result diagrams: 02/19/20 21:21 Lab Results 02/19/20 Range/Units 21:21 Sodium 136 L (137-145) mmol/L Potassium 3.8 (3.5-5.1) mmol/L Chloride 102 (98-107) mmol/L Carbon Dioxide 26 (22-30) mmol/L Anion Gap 8 mmol/L BUN 14 (9-20) mg/dL Creatinine 0.77 (0.66-1.25) mg/dL Est GFR (CKD-EPI)AfAm >90 (>60 ml/min/1.73 sqM) Est GFR (CKD-EPI)NonAf >90 (>60 ml/min/1.73 sqM) Glucose 92 (74-99) mg/dL Calcium 9.3 (8.4-10.2) mg/dL Phosphorus 4.1 (2.5-4.5) mg/dL Magnesium 1.9 (1.6-2.3) mg/dL Total Bilirubin 0.4 (0.2-1.3) mg/dL AST 27 (17-59) U/L ALT 25 (4-49) U/L Alkaline Phosphatase 42 (38-126) U/L Creatine Kinase 264 H (55-170) U/L Total Protein 6.3 (6.3-8.2) g/dL Albumin 4.0 (3.5-5.0) g/dL Acetone, Qual Negative (Negative) Disposition Clinical Impression: Dizziness Disposition: HOME SELF-CARE Condition: Good Instructions (If sedation given, give patient instructions): Dizziness (ED) Is patient prescribed a controlled substance at d/c from ED?: No Referrals: Anitha Julien MD [Primary Care Provider] - 1-2 days
[2020-02-19 22:17] LABS: ALT 25 U/L (4-49); AST 27 U/L (17-59); African American GFR (CKD) >90 (>60 ml/min/1.73 sqM); Alkaline Phosphatase 42 U/L (38-126); Anion Gap 8 mmol/L; Blood Urea Nitrogen 14 mg/dL (9-20); Calcium 9.3 mg/dL (8.4-10.2); Carbon Dioxide 26 mmol/L (22-30); Chloride 102 mmol/L (98-107); Creatine Kinase 264 U/L (55-170); Glucose 92 mg/dL (74-99); Magnesium 1.9 mg/dL (1.6-2.3); Non-African American GFR(CKD) >90 (>60 ml/min/1.73 sqM); Phosphorus 4.1 mg/dL (2.5-4.5); Potassium 3.8 mmol/L (3.5-5.1); Sodium 136 mmol/L (137-145); Total Bilirubin 0.4 mg/dL (0.2-1.3); Total Protein 6.3 g/dL (6.3-8.2)
[2020-02-19 22:27] LABS: Basophils % (A) 0 %; Eosinophils # (A) 0.4 k/uL (0-0.7); Eosinophils % (A) 4 %; HCT 41.6 % (39.0-53.0); HGB 13.9 gm/dL (13.0-17.5); Lymphocytes # (A) 1.8 k/uL (1.0-4.8); Lymphocytes % (A) 20 %; MCH 30.9 pg (25.0-35.0); MCHC 33.4 g/dL (31.0-37.0); MCV 92.5 fL (80.0-100.0); Mean Platelet Volume 8.3; Monocytes # (A) 0.4 k/uL (0-1.0); Monocytes % (A) 5 %; Neutrophils # (A) 6.3 k/uL (1.3-7.7); Neutrophils % (A) 70 %; Platelet Count 213 k/uL (150-450); RDW 12.5 % (11.5-15.5)
[2020-02-19] MEDS ORDERED: ONDANSETRON 4 MG ODT STARTER PACK 2 TAB BTL PO STA (22:28)
[2020-02-19 23:01] VITALS: BP 130/75; PULSE 79; TEMP 98
== END 2020-02-19 23:00 | disposition home or self-care (01) ==
LOC: EC 20:05
DX: R42 Dizziness and giddiness (principal); E10.9 Type 1 diabetes mellitus without complications; F17.200 Nicotine dependence, unspecified, uncomplicated
CPT/HCPCS: 93005; 80053; 82550; 82009; 83735; 84100; 85025; 99284; 96374; 96361; J2405; S0119

== ENCOUNTER → 2020-02-22 | Outpatient (CLI) | payer BC | END | disposition home or self-care (01) | LOC: LABWHC1 12:33 | PROVIDERS: ATTEND Emergency Medicine | DX: R42 Dizziness and giddiness (principal) | CPT/HCPCS: U0003; C9803 ==

== ENCOUNTER → 2020-04-01 | Outpatient (CLI) | payer BC | END | disposition home or self-care (01) | LOC: LABWHC1 16:10 | PROVIDERS: ATTEND Emergency Medicine | DX: Z20.828 Contact with and (suspected) exposure to other viral communicable diseases (principal) | CPT/HCPCS: U0003; C9803 ==

== ENCOUNTER 2022-09-18 20:13 | Emergency (ER) | payer BC, OTHER ==
[2022-09-18 20:18] VITALS: RESP 20
[2022-09-18] MEDS ORDERED: TRANEXAMIC ACID 1,000 MG/10 ML VIAL IRRIGATION ONE (20:21)
--- NOTE | 2022-09-18 21:05 | ED ---
General Adult HPI - General Chief complaint: Wound/Laceration Stated complaint: index finger laceration [facility] Time Seen by Provider: 09/18/22 20:21 Source: patient, RN notes reviewed Mode of arrival: ambulatory Limitations: no limitations - History of Present Illness Initial comments: 32-year-old male with no significant past medical history presents to the emergency department with a chief complaint of right patient reports that he was at work when he was cutting S and a metal blade cut the tip of his right second digit. He reports worsening bleeding and pain at the site. He has not taken anything for his symptoms. He reports his last tetanus vaccination was last year. He denies any numbness, tingling, weakness in the extremity. Denies anticoagulant use. - Related Data Previous Rx's Medication Instructions Recorded INSULIN ASPART (NovoLOG) [NovoLOG 8 unit SQ AC-TID 30 Days #1 vial 01/23/19 (formulary)] Insulin Detemir (Levemir) [Levemir] 24 unit SQ HS 30 Days #1 vial 01/23/19 Meclizine [Antivert] 25 mg PO TID #15 tab 02/19/20 Allergies Allergy/AdvReac Type Severity Reaction Status Date / Time No Known Allergies Allergy Verified 09/18/22 20:18 Review of Systems ROS Statement: Those systems with pertinent positive or pertinent negative responses have been documented in the HPI. ROS Other: All systems not noted in ROS Statement are negative. Past Medical History Past Medical History: Diabetes Mellitus Additional Past Medical History / Comment(s): Hypoglycemia History of Any Multi-Drug Resistant Organisms: None Reported Past Surgical History: No Surgical Hx Reported Past Psychological History: No Psychological Hx Reported Smoking Status: Current every day smoker Past Alcohol Use History: None Reported Past Drug Use History: Marijuana - Past Family History Father Family Medical History: Cancer, Coronary Artery Disease (CAD), Myocardial Infarction ([place]) Mother Family Medical History: Diabetes Mellitus General Exam - General Exam Comments Initial Comments: General: Alert, in no acute distress Head: atraumatic normocephalic. Eyes PERRL, EOMI intact, mucous membranes moist Respiratory: Lungs clear to auscultation bilaterally Cardiovascular: Heart rate regular rate and rhythm Abdominal: Soft without guarding or rebound Extremities: Normal inspection with full range of motion and normal capillary refill, right second digit with superficial laceration to fingertip fingernail remains intact range of motion at the DIP and PIP joint, 2+ radial pulses remained controlled no crepitus noted Neuroogic: alert and oriented 3, CN II-XII intact, able to ambulate with steady gait Skin: warm dry and intact with normal color Limitations: no limitations Course Vital Signs 09/18/22 09/18/22 20:16 21:40 Temperature 98.1 F 98.2 F Pulse Rate 110 H 106 H Respiratory 20 20 Rate Blood Pressure 135/78 128/86 O2 Sat by Pulse 97 97 Oximetry Medical Decision Making - Medical Decision Making Was pt. sent in by a medical professional or institution (, [facility], [facility], urgent care, hospital, or retirement...) When possible be specific @ -[No] Did you speak to anyone other than the patient for history (EMS, parent, family, police, friend...)? What history was obtained from this source @ -[No] Did you review nursing and triage notes (agree or disagree)? Why? @ -[I reviewed and agree with nursing and triage notes] Were old charts reviewed (outside hosp., previous admission, EMS record, old EKG, old radiological studies, urgent care reports/EKG's, retirement records)? Report findings @ -[No old charts were reviewed] Differential Diagnosis (chest pain, altered mental status, abdominal pain women, abdominal pain men, vaginal bleeding, weakness, fever, dyspnea, syncope, headache, dizziness, GI bleed, back pain, seizure, CVA, palpatations, mental health, musculoskeletal)? @ -[not applicable] EKG interpreted by me (3pts min.). @ -[As above] X-rays interpreted by me (1pt min.). @ -[None done] CT interpreted by me (1pt min.). @ -[None done] U/S interpreted by me (1pt. min.). @ -[None done] What testing was considered but not performed or refused? (CT, X-rays, U/S, labs)? Why? @ -[None] What meds were considered but not given or refused? Why? @ -[None] Did you discuss the management of the patient with other professionals (professionals i.e. [facility], [facility], lab, RT, psych nurse, psychologist social, entry level web developer, teacher, privacy officer, case management specialist)? Give summary @ -[No] Was smoking cessation discussed for >3mins.? @ -[No] Was critical care preformed (if so, how long)? @ -[No] Were there social determinants of health that impacted care today? How? (Homelessness, low income, unemployed, alcoholism, drug addiction, transportation, low edu. Level, literacy, decrease access to med. care, assisted, rehab)? @ -[No] Was there de-escalation of care discussed even if they declined (Discuss DNR or withdrawal of care, Hospice)? DNR status @ -[No] What co-morbidities impacted this encounter? (DM, HTN, Smoking, COPD, CAD, Cancer, CVA, ARF, Chemo, Hep., AIDS, mental health diagnosis, sleep apnea, morbi d obesity)? @ -[None] Was patient admitted / discharged? Hospital course, mention meds given and route, prescriptions, significant lab abnormalities, going to OR and other pertinent info. @ -Discharged. This is a 32 -year-old male who presents the emergency department with right finger laceration. Patient had a thorough history and physical exam performed while in the ED. Physical exam is essentially unremarkable heart rate regular rate and rhythm, lungs clear to auscultation bilaterally abdomen is soft and nontender. Second digit with superficial laceration to fingertip. Nail bed intact, full range of motion in DIP and PIP joint. I discussed the results in detail with the patient who verbalized understanding and all questions were addressed. She was given TXA and tubegauze dressing with symptomatic relief on the ED. Return precautions were discussed at length. Strongly recommended to follow up with primary care physician in 1-2 days. Patient discharged in stable condition. Case discussed with FERNANDO Peralta who agrees with plan of care Undiagnosed new problem with uncertain prognosis? @ -[No] Drug Therapy requiring intensive monitoring for toxicity (Heparin, Nitro, Insulin, Cardizem)? @ -[No] Were any procedures done? @ -[No] Diagnosis/symptom? @ -Right 2nd Digit Laceration Acute, or Chronic, or Acute on Chronic? @ -Acute Uncomplicated (without systemic symptoms) or Complicated (systemic symptoms)? @ -uncomplicated Side effects of treatment? @ -[No] Exacerbation, Progression, or Severe Exacerbation? @ -[No] Poses a threat to life or bodily function? How? (Chest pain, [place], [place], pneumonia, PE, COPD, DKA, ARF, appy, cholecystitis, CVA, Diverticulitis, Homicidal, Suicidal, threat to staff... and all critical care pts) @ -low likelihood Disposition Clinical Impression: Laceration Disposition: HOME SELF-CARE Condition: Stable Instructions (If sedation given, give patient instructions): Laceration (ED), Finger Laceration (ED) Additional Instructions: Please return to the nearest emergency department if symptoms worsen or persist Is patient prescribed a controlled substance at d/c from ED?: No Referrals: Anitha Julien MD [Primary Care Provider] - 1-2 days Time of Disposition: 21:05
[2022-09-18 21:42] VITALS: BP 128/86; PULSE 106; TEMP 98.2
== END 2022-09-18 21:49 | disposition home or self-care (01) ==
LOC: EC 20:13
DX: S61.210A Laceration without foreign body of right index finger without damage to nail, initial encounter (principal); E11.9 Type 2 diabetes mellitus without complications; F12.90 Cannabis use, unspecified, uncomplicated; F17.200 Nicotine dependence, unspecified, uncomplicated; W26.8XXA Contact with other sharp object(s), not elsewhere classified, initial encounter
CPT/HCPCS: 99283